=== PATIENT | male | born 1940 | race Caucasian/White ===

== ENCOUNTER → 2016-09-10 | Outpatient (CLI) | payer BC ==
[~2016-09-10] MED LIST: ALBU1AER9 PO; AMLO-110 PO; AMX500 PO; CLIN1GEL TOP; ERYT2GEL3 TOP; FLVHFA110 PO; LDXO60 TOP; LEVO125T72 PO; LPR25 PO; METR0.7527 TOP; NSNN50
== END | disposition home or self-care (01) ==
LOC: C.LABBC 11:11
PROVIDERS: ATTEND Urology
DX: D49.59 Neoplasm of unspecified behavior of other genitourinary organ (principal); R97.20 Elevated prostate specific antigen [PSA]

== ENCOUNTER → 2017-05-07 | Outpatient (CLI) | payer BC ==
[2017-05-07 13:19] LABS: BASO % 0.3 %; BASO ABS # 0.02 K/uL (0-0.2); COMPLETE YES; EOS % 6.9 %; HEMATOCRIT 38.1 % (42-52); IG% 0.2 %; LYMPH % 35.7 %; LYMPH ABS # 2.23 K/uL (1.2-3.4); MEAN CELL VOLUME 95.5 fL (80-100); MEAN CORPUSCULAR HEMOGLOBIN 31.3 pg (25-34); MEAN CORPUSCULAR HGB CONC 32.8 g/dl (32-36); MEAN PLATELET VOLUME 12.1 fL (7.4-10.4); NEUT % 49.9 %; PLATELET COUNT 176 K/uL (130-400); RED BLOOD COUNT 3.99 M/uL (4.7-6.1); WHITE BLOOD COUNT 6.25 K/uL (4.8-10.8)
[2017-05-07 13:48] LABS: ESTIMATED AVERAGE GLUCOSE 111 mg/dl; HA1C FLAG Normal (Normal)
[2017-05-07 14:04] LABS: ALT/SGPT 24 U/L (12-78); AST/SGOT 13 U/L (15-37); BLOOD UREA NITROGEN 17 mg/dl (7-18); BUN/CREATININE RATIO 17.6 (10-20); CALCIUM 8.2 mg/dl (8.5-10.1); CARBON DIOXIDE 29 mmol/L (21-32); CHLORIDE 103 mmol/L (98-107); CREATININE 0.95 mg/dl (0.60-1.40); GLUCOSE 100 mg/dl (70-99); POTASSIUM 3.8 mmol/L (3.5-5.1); SODIUM 137 mmol/L (136-145)
[2017-05-07 14:15] LABS: ALKALINE PHOSPHATASE 56 U/L (45-117); CHOLESTEROL 128 mg/dl (0-200); CHOLESTEROL/HDL RATIO 1.9; HDL CHOLESTEROL 66 mg/dl; LDL CHOLESTEROL CALCULATED 51 mg/dl; THYROID STIMULATING HORMONE 0.843 uIu/ml (0.300-4.500); TRIGLYCERIDES 57 mg/dl (0-150); VERY LOW DENSITY LIPOPROT CALC 11 mg/dl
== END | disposition home or self-care (01) ==
LOC: C.LABBC 10:47
PROVIDERS: ATTEND Internal Medicine Geriatric Medicine
DX: E03.9 Hypothyroidism, unspecified (principal); I10 Essential (primary) hypertension; R73.9 Hyperglycemia, unspecified; J45.909 Unspecified asthma, uncomplicated

== ENCOUNTER → 2017-08-11 | Outpatient (CLI) | payer BC ==
[2017-08-11 13:31] LABS: BASO % 0.2 %; BASO ABS # 0.02 K/uL (0-0.2); EOS % 3.2 %; EOS ABS # 0.26 K/uL (0-0.5); HEMATOCRIT 44.4 % (42-52); HEMOGLOBIN 15.3 g/dL (14.0-18.0); IG# 0.02 K/uL (0.00-0.02); LYMPH % 26.6 %; LYMPH ABS # 2.18 K/uL (1.2-3.4); MEAN CELL VOLUME 92.3 fL (80-100); MEAN CORPUSCULAR HEMOGLOBIN 31.8 pg (25-34); MEAN CORPUSCULAR HGB CONC 34.5 g/dl (32-36); MEAN PLATELET VOLUME 11.8 fL (7.4-10.4); MONO % 7.2 %; MONO ABS # 0.59 K/uL (0.11-0.59); NEUT % 62.6 %; NEUT ABS # 5.14 K/uL (1.4-6.5); PLATELET COUNT 206 K/uL (130-400); RED CELL DISTRIBUTION WIDTH SD 43.2 fL (36.4-46.3); WHITE BLOOD COUNT 8.21 K/uL (4.8-10.8)
== END | disposition home or self-care (01) ==
LOC: C.LABBC 12:22
PROVIDERS: ATTEND Internal Medicine Geriatric Medicine
DX: R97.20 Elevated prostate specific antigen [PSA] (principal); D64.9 Anemia, unspecified